=== PATIENT | male | born 1970 | race Caucasian/White ===

== ENCOUNTER 2016-10-21 04:16 | Emergency (ER) | payer SELFPAY ==
[~2016-10-21] VITALS: Ht 177.8 cm; Wt 74.8 kg
[2016-10-21] MEDS ORDERED: fentaNYL PF VIAL 100 MCG/2 ML VIAL IV PRN (04:45)
[2016-10-21 04:51] LABS: BASO # 0.1 x10^3/uL (0.0-0.2); BASO % 1 % (0-3); EOS % 3 % (0-3); HEMATOCRIT 49.3 % (39.0-53.0); HEMOGLOBIN 16.5 g/dL (13.0-17.5); LYMPH # 4.8 x10^3/uL (1.0-4.8); LYMPH % 39 % (24-48); MEAN CORPUSCULAR HEMOGLOBIN 31 pg (25-35); MEAN CORPUSCULAR HGB CONC 34 g/dL (31-37); MEAN CORPUSCULAR VOLUME 93 fL (79-100); MONO % 10 % (0-9); NEUT % 47 % (31-73); PLATELET COUNT 230 x10^3/uL (140-400); RED BLOOD COUNT 5.31 x10^6/uL (4.30-5.70); RED CELL DISTRIBUTION WIDTH 12.9 % (11.5-14.5); WHITE BLOOD COUNT 12.3 x10^3/uL (4.0-11.0)
[2016-10-21] MEDS ORDERED: ASPIRIN 325 MG TABLET PO ONE (05:00)
[2016-10-21 05:11] LABS: CALCIUM 9.5 mg/dL (8.5-10.1); CREATININE 0.8 mg/dL (0.7-1.3); GFR 103.6
--- NOTE | 2016-10-21 05:13 | PHYS DOC ---
Past Medical History Past Medical History: Hypertension Past Surgical History: No Surgical History Alcohol Use: None Drug Use: None Adult General Chief Complaint Chief Complaint: CHEST PAIN HPI HPI Patient is a 46 year old male who presents with constant chest pain in his bilateral upper chest radiating to his left arm associated with nausea that started while in bed around 0230 this a.m. He notes nausea improving. He denies prior symptoms like this. He denies prior exertional symptoms. He denies palpitations, diaphoresis, lightheadedness, dyspnea, cough, hemoptysis, leg pain or swelling, orthopnea, abdominal pain, diarrhea, fever or chills. Review of Systems Review of Systems Constitutional: Denies fever or chills [] Eyes: Denies change in visual acuity, redness, or eye pain [] HENT: Denies nasal congestion or sore throat [] Respiratory: Denies cough or shortness of breath [] Cardiovascular: No additional information not addressed in HPI [] GI: Denies abdominal pain, nausea, vomiting, bloody stools or diarrhea [] : Denies dysuria or hematuria [] Musculoskeletal: Denies back pain or joint pain [] Integument: Denies rash or skin lesions [] Neurologic: Denies headache, focal weakness or sensory changes [] Endocrine: Denies polyuria or polydipsia [] Current Medications Current Medications Current Medications Medications (Trade) Dose Ordered Sig/Adonay Start Time Stop Time Status Last Admin Dose Admin Aspirin (Ayden Aspirin) 325 mg 1X ONCE 10/21/16 05:00 10/21/16 05:01 DC 10/21/16 04:49 325 MG Fentanyl Citrate (Fentanyl 2ml Vial) 50 mcg PRN Q15MIN PRN 10/21/16 04:45 10/22/16 04:44 Multi-Ingredient Mouthwash/Gargle (Gi Cocktail Single Dose) 15 ml 1X ONCE 10/21/16 05:30 10/21/16 05:31 DC Allergies Allergies Allergies Coded Allergies Type Severity Reaction Last Updated Verified No Known Drug Allergies 10/21/16 No Physical Exam Physical Exam Constitutional: Well developed, well nourished, no acute distress, non-toxic appearance. [] HENT: Normocephalic, atraumatic, bilateral external ears normal, oropharynx moist, nose normal. [] Eyes: PERRLA, EOMI. [] Neck: Normal range of motion, supple. [] Cardiovascular:Heart rate regular rhythm [] Lungs & Thorax: Bilateral breath sounds clear to auscultation [] Abdomen: Bowel sounds normal, soft, no tenderness. [] Skin: Warm, dry, no erythema, no rash. [] Back: No tenderness, no CVA tenderness. [] Extremities: No tenderness, ROM intact, no edema. [] Neurologic: Alert and oriented X 3, normal motor function, normal sensory function, no focal deficits noted. [] Psychologic: Affect normal, judgement normal, mood normal. [] Current Patient Data Vital Signs Vital Signs Date Time Temp Pulse Resp B/P (MAP) Pulse Ox O2 Delivery O2 Flow Rate FiO2 10/21/16 04:28 97.7 77 16 183/136 (152) 95 Room Air 97.7 Lab Values Laboratory Tests Test 10/21/16 04:24 White Blood Count 12.3 x10^3/uL (4.0-11.0) H Red Blood Count 5.31 x10^6/uL (4.30-5.70) Hemoglobin 16.5 g/dL (13.0-17.5) Hematocrit 49.3 % (39.0-53.0) Mean Corpuscular Volume 93 fL (79-100) Mean Corpuscular Hemoglobin 31 pg (25-35) Mean Corpuscular Hemoglobin Concent 34 g/dL (31-37) Red Cell Distribution Width 12.9 % (11.5-14.5) Platelet Count 230 x10^3/uL (140-400) Neutrophils (%) (Auto) 47 % (31-73) Lymphocytes (%) (Auto) 39 % (24-48) Monocytes (%) (Auto) 10 % (0-9) H Eosinophils (%) (Auto) 3 % (0-3) Basophils (%) (Auto) 1 % (0-3) Neutrophils # (Auto) 5.8 x10^3uL (1.8-7.7) Lymphocytes # (Auto) 4.8 x10^3/uL (1.0-4.8) Monocytes # (Auto) 1.3 x10^3/uL (0.0-1.1) H Eosinophils # (Auto) 0.4 x10^3/uL (0.0-0.7) Basophils # (Auto) 0.1 x10^3/uL (0.0-0.2) Sodium Level 142 mmol/L (136-145) Potassium Level 4.0 mmol/L (3.5-5.1) Chloride Level 102 mmol/L (98-107) Carbon Dioxide Level 29 mmol/L (21-32) Anion Gap 11 (6-14) Blood Urea Nitrogen 11 mg/dL (8-26) Creatinine 0.8 mg/dL (0.7-1.3) Estimated GFR (Cockcroft-Gault) 103.6 Glucose Level 95 mg/dL (70-99) Calcium Level 9.5 mg/dL (8.5-10.1) Troponin I Quantitative < 0.017 ng/mL (0.000-0.055) EO-Gnj-R-Type Natriuretic Peptide 28 pg/mL (0-124) Laboratory Tests 10/21/16 04:24 Laboratory Tests 10/21/16 04:24 EKG EKG EKG as interpreted by me as normal sinus rhythm, rate 71, no ST elevations or depressions, T-wave inversions in inferior leads, normal intervals, no ectopy Radiology/Procedures Radiology/Procedures Chest xray as interpreted by me with no acute cardiopulmonary disease process Course & Med Decision Making Course & Med Decision Making Pertinent Labs and Imaging studies reviewed. (See chart for details) Other than EKG changes, workup is largely unremarkable. He also has uncontrolled hypertension. I recommended admission for cardiology evaluation, however he prefers to follow-up outpatient. I encouraged him to follow-up closely with cardiology clinic and his primary care doctor. Return precautions given. He understands and agrees with plan. Dragon Disclaimer Dragon Disclaimer This electronic medical record was generated, in whole or in part, using a voice recognition dictation system. Departure Departure Impression: Primary Impression: Chest pain Additional Impression: Left arm pain Disposition: HOME, SELF-CARE Condition: STABLE Referrals: NO PCP (PCP) ISAÍAS CONNELL MD Patient Instructions: Chest Pain (Nonspecific), [id number] Additional Instructions: Follow-up with your primary care doctor and cardiology clinic within one week. Please call for appointment. Return for any concerns. Problem Qualifiers Primary Impression: Chest pain Chest pain type: unspecified Qualified Codes: R07.9 - Chest pain, unspecified Sushil HICKS MD Oct 21, 2016 05:13
[2016-10-21] MEDS ORDERED: LIDO:MAALOX:DONNATAL 1:1:1 15 ML SINGLE DOSE SWSW ONE (05:30)
[2016-10-21 05:45] VITALS: BP 188/123
--- NOTE | 2016-10-21 06:10 | EKG ---
[facility] [address] [place] [address] Test Date: 2016-10-21 Test Time: 04:27:51 Pat Name: MOISES LEE Department: Room: Gender: M [employer]: NASH : 1970 Requested By: Sushil HICKS Order Number: [id number] Reading MD: Measurements Intervals [place] Rate: 71 P: 37 MI: 172 QRS: 12 QRSD: 88 T: 1 QT: 396 QTc: 435 Interpretive Statements SINUS RHYTHM T ABNORMALITY IN INFERIOR LEADS RI6.01 Unconfirmed report No previous ECG available for comparison
--- NOTE | 2016-10-21 07:14 | RAD ---
Chest, 2 views, 10/21/2016: History: Chest pain The heart size and pulmonary vascularity are normal. No pulmonary infiltrates are seen. There is no evidence of pleural fluid. Minimal spurring is present in the spine. IMPRESSION: No acute cardiopulmonary abnormality is detected.
== END 2016-10-21 06:03 | disposition home or self-care (01) ==
LOC: ER 04:16
DX: R07.89 Other chest pain (principal); M79.602 Pain in left arm; R11.0 Nausea; I10 Essential (primary) hypertension; Z79.82 Long term (current) use of aspirin
CPT/HCPCS: 36415; 71020; 80048; 83880; 84484; 85027; 93005; 99285-25